=== PATIENT | female | born 1925 | race Caucasian/White ===

== ENCOUNTER → 2016-05-23 | Outpatient (REF) | payer MEDICARE, MEDICAID ==
[~2016-05-23] MED LIST: /PANT40TA PO; ACET-654 PO; ACET500C OR; AMLO5TAB2 PO; ARIC5TAB PO; ATEN25TA OR; ATEN25TA PO; AVEL1TAB PO; CALCTAB68 PO; CEFT500T PO; COUM1TAB17 PO; CYCL5TAB PO; DILA100C PO; FLON1SPR; FLUD0.1T PO; FLUD1TA OR; FLUD1TA PO; GUAI100S29 PO; HYDR10T PO; K-TA10TA OR; LASI20TA OR; LORA-376 PO; NAME10TA PO; OCUF0.3D OS; OMEP20CA3 PO; OMEP20TA PO; OMEP20TA7 PO; PARO20TA2 PO; PAXI20TA PO; PAXI20TA3 PO; PHEN100C PO; SLOWTAB OR; SLOWTAB2 PO; TYLE325T5 PO; TYLE650T30 PO; VIT D 2000 PO; VITA2000 PO; amlodipine PO
== END ==
LOC: M LAB REF 17:01
PROVIDERS: ATTEND Nurse Practitioner Adult Health
DX: R19.7 Diarrhea, unspecified (principal)

== ENCOUNTER → 2016-08-25 | Outpatient (REF) | payer MEDICARE, MEDICAID ==
[2016-08-25 10:44] LABS: MEAN CORPUSCULAR HEMOGLOBIN 33.5 pg (27.0-33.0); MEAN CORPUSCULAR HGB CONC 34.4 g/dl (32.0-36.5); MEAN CORPUSCULAR VOLUME 97.5 fl (80.0-96.0); RED CELL DISTRIBUTION WIDTH 13.2 % (11.5-14.5); WHITE BLOOD COUNT 5.9 K/mm3 (4.0-10.0)
[2016-08-25 11:07] LABS: ALBUMIN 3.4 GM/DL (3.2-5.2); ALBUMIN/GLOBULIN RATIO 1.13 (1.00-1.93); ALKALINE PHOSPHATASE 137 U/L (45-117); ALT/SGPT 34 U/L (12-78); ANION GAP 8 MEQ/L (8-16); AST/SGOT 33 U/L (15-37); BILIRUBIN,TOTAL 0.4 MG/DL (0.2-1.0); BLOOD UREA NITROGEN 19 MG/DL (7-18); CALCIUM LEVEL 8.9 MG/DL (8.8-10.2); CARBON DIOXIDE LEVEL 31 MEQ/L (21-32); CHLORIDE LEVEL 104 MEQ/L (98-107); CREATININE FOR GFR 0.75 MG/DL (0.55-1.02); GLOMERULAR FILTRATION RATE > 60.0 (>32); GLUCOSE, FASTING 84 MG/DL (83-110); POTASSIUM SERUM 4.2 MEQ/L (3.5-5.1); SODIUM LEVEL 143 MEQ/L (136-145); TOTAL PROTEIN 6.4 GM/DL (6.4-8.2)
== END ==
PROVIDERS: ATTEND Nurse Practitioner Adult Health
DX: I95.1 Orthostatic hypotension (principal); G40.909 Epilepsy, unspecified, not intractable, without status epilepticus